=== PATIENT | female | born 2000 | race Two or more races ===

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

== ENCOUNTER 2021-03-16 18:00 | Observation (INO) | payer MEDICAID, MEDICARE | END 2021-03-16 22:30 | disposition home or self-care (01) | LOC: L&D 18:00 → 8 EST A/PP 19:36 | PROVIDERS: ADMIT Obstetrics & Gynecology; ATTEND Obstetrics & Gynecology | DX: O62.9 Abnormality of forces of labor, unspecified (principal); O26.893 Other specified pregnancy related conditions, third trimester; R10.30 Lower abdominal pain, unspecified; Z3A.38 38 weeks gestation of pregnancy | CPT/HCPCS: 59025; G0378; 99281 ==